=== PATIENT | female | born 1995 | race Caucasian/White ===

== ENCOUNTER 2017-06-14 14:02 | Emergency (ER) | payer OTHER | END 2017-06-14 15:01 | disposition home or self-care (01) | LOC: E/R 14:02 | DX: R11.2 Nausea with vomiting, unspecified (principal); R19.7 Diarrhea, unspecified | CPT/HCPCS: 99284; Z7502 ==

== ENCOUNTER 2017-11-23 18:57 | Emergency (ER) | payer OTHER ==
[2017-11-23] MEDS: DEXAMETHASONE 10 MG/ML 1 ML INJ IM (21:01)
[2017-11-23] MEDS: IBUPROFEN 600 MG TAB PO (21:01)
== END 2017-11-23 23:00 | disposition home or self-care (01) ==
LOC: FTE 18:57
DX: J02.9 Acute pharyngitis, unspecified (principal)
CPT/HCPCS: 87880; 96372; 99284-25

== ENCOUNTER 2018-11-18 15:51 | Emergency (ER) | payer OTHER | END 2018-11-18 17:53 | disposition home or self-care (01) | LOC: FTE 15:51 | DX: J02.9 Acute pharyngitis, unspecified (principal); H61.21 Impacted cerumen, right ear | CPT/HCPCS: 99283; Z7502 ==